=== PATIENT | male | born 1950 | race Caucasian/White ===

== ENCOUNTER → 2020-07-26 09:43 | Outpatient (BNVA) | payer OTHER, SELFPAY | PROVIDERS: Family Provider Internal Medicine Medical Oncology; PCP Speech-Language Pathologist; Referring Provider Family Medicine; Visit Provider Urology | DX: Z98.890 Other specified postprocedural states (principal); L90.0 Lichen sclerosus et atrophicus | CPT/HCPCS: 81003 ==

== ENCOUNTER → 2020-08-07 08:08 | Outpatient (BNVA) | payer OTHER, SELFPAY | PROVIDERS: PCP Speech-Language Pathologist; Visit Provider Urology | DX: L90.0 Lichen sclerosus et atrophicus (principal) | CPT/HCPCS: 87635 ==

== ENCOUNTER 2020-08-11 11:27 | Day surgery (SDC) | payer OTHER, SELFPAY ==
[2020-08-10 12:18] VITALS: BMI 31.9
[2020-08-11] VITALS (10 sets, daily range): BP systolic 135–175; BP diastolic 76–98; PULSE 62–75; RESP 14–20; TEMP 36.1–37.1; O2SAT 92–97
[2020-08-11] MEDS: sodium chloride 0.9% 1,000 ML 30 ML IV (12:21)
--- NOTE | 2020-08-11 12:49 | ANES.PREANE2 ---
Pre-Anesthetic Assessment Pre-Anesthetic Assessment: Height/Weight: Height 1.73 m Weight 95.254 kg Temp Pulse Resp BP Pulse Ox 98.3 F 75 18 175/98 94 08/11/20 11:54 08/11/20 11:54 08/11/20 11:54 08/11/20 11:54 08/11/20 11:54 Preop Diagnosis: post Circumcision adhesions Proposed Procedure: Operation Date: 08/11/20 13:00 Proposed Procedures p Circumcision and Release of Adhesions 35796 L90.0(Not Applicable) - Mario Mcelroy MD Was Beta Maritza taken within 24 hours: N/A Last intake: Intake Last Liquid Date 08/11/20 Last Liquid Time 08:00 Last Solid Date 08/10/20 Last Solid Time 20:00 Social: Social History: No alcohol and No tobacco Exam: Pre-Anes Outpt Exam: alert, oriented x 3, clear to auscultation bilaterally and regular rate & rhythm Airway: Submandibular: Other (Fullness) Cervical ROM: WNL MP: 3 Dentition: Full Additional comments: H/O difficult intubation Pulmonary: Pulmonary: Sleep apnea CV/HEM: CV/HEM: HTN : : None reported Hepatic: Hepatic: None reported GI: GI: None reported Metabolic: Metabolic: None reported Musc/skel: Musc/skel: None reported Neuropsych: Neuropsych: Anxiety and Depression Anesthetic Plan: ASA status: 3 Anesthesia: General Risk of > 500 ml blood loss (7ml/kg in children): No Meds/Allergies Current Medications: Current Medications Generic Name Dose Route Start Last Admin Trade Name Freq PRN Reason Stop Dose Admin Sodium Chloride 1,000 mls @ 30 ml s/hr 08/11/20 11:45 08/11/20 12:21 Sodium Chloride 0.9% IV 08/12/20 11:44 30 mls/hr .Q24H JARET Administration PFSH Anesthesia PFSH: Medical History Coronary artery disease Hypertension Lichen sclerosus Surgical History H/O circumcision H/O four vessel coronary artery bypass graft S/P sinus surgery Family History Father , at age 54 Cancer Hodgkins Lymphoma Mother , at age 77 Cancer lymphoma Social History Smoking and tobacco status: never smoked Alcohol intake: never Marital status: Current occupational status: retired History of recent travel: No Data Anesthesia Cardiac Studies: No Data to Display
--- NOTE | 2020-08-11 13:06 | P.HPUD_ITS ---
Surgery/Procedure H&P Update DATE OF PROCEDURE: August 11, 2020 DATE H&P PERFORMED: 07/26/20 H&P UPDATE INFORMATION: I have reviewed H&P completed within last 30 days, I have examined patient prior to procedure, No changes to prior documentation and H&P is in [facility] EMR on date indicated CHANGES TO PREVIOUS DOCUMENTATION: Reviewed again with the patient and his daughter Lizeth the difference between a normal circumcision and post circumci jimi adhesions related to lichen sclerosis. The plan will be to free up the remaining skin from the glans penis and consider a band incision with relaxing closure if indicated. Reviewed the importance of the post surgical local treatment with steroid cream. Both patient and daughter expressed understanding and agreed with decision to proceed. PREOP DIAGNOSIS: post Circumcision adhesions PLANNED PROCEDURE: Operation Date: 08/11/20 13:00 Proposed Procedures p Circumcision and Release of Adhesions 53745 L90.0(Not Applicable) - Mario Mcelroy MD
[2020-08-11] MEDS: neomycin-poly-bacitracin oint 28 gm 28 APPLIC (13:30)
--- NOTE | 2020-08-11 14:04 | SUR.PHASEI ---
PT TO PACU SLEEPY WITH ORAL AIRWAY IN PLACE, GOOD RESP EFFORT NOTED, VSS , DRESSING TO PENIS D/I NO BLEEDING NOTED DISTAL PENIS PINK IN COLOR.
--- NOTE | 2020-08-11 14:10 | SUR.PHASEI ---
PT AWAKE ALERT VERBALIZED NO PAIN OR NAUSEA, ORAL AIRWAY OUT PT NOW ON RA TRIAL.
--- NOTE | 2020-08-11 14:16 | PM.OP ---
Operative Report Date of procedure: August 11, 2020 Pre-op Diagnosis: post Circumcision adhesions, lichen sclerosis Post-op diagnosis: same Procedure Done: 1. Extensive adhesiolysis penile scarring secondary to lichen sclerosis. 2. Relaxing incision with skin flap development and closure Pathology: none sent Surgeon: Navi Anesthesia: General Estimated blood loss: Less than 5 cc Complications: None Findings: Severe adhesions of the lichen sclerosus involved penile skin to the glans penis. Tight restrictive band requiring vertical incision with flap development and horizontal closure as relaxing technique. Excellent functional and cosmetic result. Condition: stable Disposition: PACU Brief History: Mr. Alva is a 70-year-old white male with a history of circumcision remotely with long-term benefit. Recently he has developed recurrent phimosis with retraction of the phallus and evidence of lichen sclerosis on exam with essentially hidden penis. Was having a lot of trouble with discomfort as well as spraying with voiding. Recommended circumcision revision, adhesiolysis, possible relaxing incision. Procedure: After routine preoperative evaluation examination and obtaining of informed consent he was taken to the operating suite on 08/11/2020 where general anesthesia was administered without difficulty after appropriate timeout was performed, SCDs confirmed to be functioning, preoperative antibiotics administered, beta-mert protocol confirmed. Prepped and draped in the usual sterile fashion in supine position. Utilizing both blunt and sharp dissection the adhesions and lichen sclerosis involve skin was carefully dissected off the glans penis. This allowed the shaft skin which had become involved in the phimosis picture to be retracted. Further dissection helped free the adherent skin to the aquino and the tissue planes were developed to essentially normal appearance and exposure of the entire head of the penis. There was significant dense tissue at the frenulum which was also dissected to free up further length and normalization of anatomic appearance. Attention was then directed to the tight phimosis band from the lichen sclerosus. A vertical incision was made for approximately 2-1/2 cm and then flaps were developed laterally as well as proximally and distally to free up the skin. The vertical incision was closed horizontally which allowed significant relaxation and pliability of the skin. The skin was then closed with interrupted 3-0 chromic. Cosmetic result was good. Functional result was better. A lightly compressive dressing was then applied with Xeroform gauze covered with antibiotic ointment, 4 x 4 loosely wrapped around the penis and Coban tape for a lightly compressive dressing. He was awakened in the operating room and returned to the recovery room. PLANS: 1. Follow-up in approximately 6 weeks. 2. Can remove the dressing after few days if he can keep it on that long 3. Antibiotic ointment for 2 to 3 weeks to keep the skin pliable and then begin steroid application 4. Reviewed the instructions with his daughter.
[2020-08-11] MEDS: ondansetron 2 mg/ML SDV 2 mL 4 MG IVP (15:44)
--- NOTE | 2020-08-11 16:12 | ANE.PACU2 ---
Inpatient post-anesthesia follow up: Airway intact: Yes Vital signs: Temperature 97 F Pulse Rate 64 Respiratory Rate 18 Blood Pressure 159/87 Pulse Oximetry 92 Oxygen Delivery Me thod Room Air Oxygen Flow Rate 8 Fraction of Inspir ed Oxygen Hydration adequate: Yes Nausea and vomiting: No Pain level: 2 Mental status: Baseline
== END 2020-08-11 16:40 | disposition home or self-care (01) ==
PROVIDERS: PCP Speech-Language Pathologist; Visit Provider Urology
PROC: (CPT 54162; principal; 2020-08-11 13:00)
DX: N47.5 Adhesions of prepuce and glans penis (principal); Z98.890 Other specified postprocedural states; N48.0 Leukoplakia of penis; G47.30 Sleep apnea, unspecified; I10 Essential (primary) hypertension; I25.10 Atherosclerotic heart disease of native coronary artery without angina pectoris
CPT/HCPCS: 54162; 12345; J0690; J2405; J2704; J3010; J7030

== ENCOUNTER → 2020-09-25 09:26 | Outpatient (BNVA) | payer OTHER, SELFPAY | PROVIDERS: PCP Speech-Language Pathologist; Visit Provider Urology | DX: L90.0 Lichen sclerosus et atrophicus (principal); N47.5 Adhesions of prepuce and glans penis | CPT/HCPCS: 81003 ==

== ENCOUNTER → 2020-12-28 09:07 | Outpatient (BNVA) | payer OTHER, SELFPAY | PROVIDERS: PCP Family Medicine; Visit Provider Urology | DX: N39.9 Disorder of urinary system, unspecified (principal); N47.5 Adhesions of prepuce and glans penis; L90.0 Lichen sclerosus et atrophicus | CPT/HCPCS: 81003 ==

== ENCOUNTER → 2022-03-26 13:01 | Outpatient (BNVA) | payer OTHER, SELFPAY | PROVIDERS: PCP Family Medicine; Visit Provider Urology | DX: N47.5 Adhesions of prepuce and glans penis (principal); L90.0 Lichen sclerosus et atrophicus | CPT/HCPCS: 99213 ==

== ENCOUNTER 2022-05-10 07:36 | Outpatient (CLI) | payer OTHER, SELFPAY ==
--- NOTE | 2022-05-10 | CT_ITS ---
WS: [id number] CT NECK WITHOUT CONTRAST HISTORY: ENLARGED LYMPH NODE TECHNIQUE: Contiguous 5 mm axial images are performed through the neck without intravenous contrast. Sagittal and coronal reformats are also submitted. All CT scans at [facility] use at least on e of these dose optimization techniques: automated exposure control; mA and/or kV adjustment per brock ent size (includes targeted exams where dose is matched to clinical indication); or iterative reconst ruction. CONTRAST: CONTRAST: None DLP: 289.38 mGy.cm COMPARISON: None available. Very minimal asymmetry involving the LEFT palatine tonsil. LEFT palatine tonsil is larger than the RI GHT. No compromise of the airway. Glottis and subglottic region are negative. Torus tubarius and fossa of Rosenmuller and parapharyngeal fat are normal. Very small bilateral cervical chain lymph nodes. These lymph nodes are not enlarged. Normal fatty hil a remain. The largest lymph nodes are less than a centimeter. Thyroid gland and salivary glands are normally enhancing with no masses. Cerclage wires are noted in the posterior upper cervical spine from C2 to C3. Remote fracture at the base of the odontoid process. C4 anterolisthesis by 3 mm. Visualized portions of the skull base demonstrate no abnormalities. Orbits and globes are within norm al limits. No soft tissue masses. Near complete opacification LEFT maxillary sinus Lung apices are clear. CT/CT neck wo con [id number] IMPRESSION: 1. Very mild asymmetry of the palatine tonsils with the LEFT being larger than the RIGHT. Direct visualization may be necessary. 2. No cervical chain lymphadenopathy.
== END 2022-05-10 07:37 | disposition home or self-care (01) ==
PROVIDERS: PCP Family Medicine; Visit Provider Family Medicine
DX: Z01.89 Encounter for other specified special examinations (principal); R59.9 Enlarged lymph nodes, unspecified
CPT/HCPCS: 70490

== ENCOUNTER 2022-05-27 07:04 | Day surgery (SDC) | payer OTHER, SELFPAY ==
[2022-05-23 14:56] VITALS: BMI 32.3
[2022-05-27 07:23] VITALS: BP 160/99; PULSE 80; RESP 18; TEMP 36.3; O2SAT 94
[2022-05-27] MEDS: sodium chloride 0.9% 1,000 ML 30 ML IV (07:34)
--- NOTE | 2022-05-27 07:56 | W.PM.OPSFHP ---
Same Day Surgery H&P Indication for Procedure/HPI DATE OF PROCEDURE: May 27, 2022 CHIEF COMPLAINT/INDICATIONFOR SURGICAL PROCEDURE: Screening PREOP DIAGNOSIS: Screening PLANNED PROCEDURE: Operation Date: 05/27/22 08:30 Proposed Procedures p Colonoscopy 88255,Z12.11(Not Applicable) - Avelino Sawant MD Medications/Allergies* Home Medications Medication Instructions Recorded Confirmed Type aspirin 81 mg tablet,delayed 81 mg PO DAILY 07/26/20 05/23/22 History release atorvastatin 80 mg tablet 80 mg PO DAILY 07/26/20 05/23/22 History cetirizine 10 mg tablet (All Day 10 mg PO DAILY PRN allergies 07/26/20 05/23/22 History Allergy (cetirizine)) cholecalciferol (vitamin D3) 50 50 mcg PO DAILY 07/26/20 05/23/22 History mcg (2,000 unit) capsule fluoxetine 10 mg capsule 10 mg PO DAILY 07/26/20 05/23/22 History hydrochlorothiazide 25 mg tablet 25 mg PO DAILY 07/26/20 05/23/22 History losartan 100 mg tablet 100 mg PO DAILY 07/26/20 05/23/22 History potassium chloride 20 mEq oral 20 meq PO BID 07/26/20 05/23/22 History packet (Klor-Con) metoprolol succinate 25 mg 12.5 mg PO DAILY 03/26/22 05/23/22 History tablet,extended release 24 hr tamsulosin 0.4 mg capsule 0.4 mg PO DAILY 03/26/22 05/23/22 History Allergies/Adverse Reactions Allergy/AdvReac Type Severity Reaction Status Date / Time bupivacaine [From Marcaine] Allergy NA Verified 05/21/22 14:48 spironolactone Allergy NA Verified 05/21/22 14:48 Current Medications: Generic Name Dose Route Start Last Admin Trade Name Freq PRN Reason Stop Dose Admin Sodium Chloride 1,000 mls @ 30 mls/hr 05/27/22 07:15 05/27/22 07:34 Sodium Chloride 0.9% IV 30 mls/hr .Q24H JARET Administration Pertinent History/Comorbid Conditions* Medical History (Updated 05/21/22 @ 15:37 by Avelino Sawant MD) Coronary artery disease Hypertension Lichen sclerosus Penile adhesions Surgical History (Updated 07/26/20 @ 12:16 by Toya Fontanez APRN) H/O circumcision H/O four vessel coronary artery bypass graft S/P sinus surgery Family History (Updated 07/14/20 @ 14:41 by Delaney Daniels RN) Father, at age 54 Mother, at age 77 Cancer Father Hodgkins Lymphoma Mother lymphoma Social History Smoking and tobacco status: never smoked Alcohol intake: never Marital status: Current occupational status: retired History of recent travel: No Pertinent Exam Findings alert, oriented x 3, clear to auscultation bilaterally, regular rate & rhythm, operative site marked and procedure specific exam findings Recommendations Surgery/Procedure today Coding Level of Care Code Acute [employer] 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
--- NOTE | 2022-05-27 08:33 | P.ANESASSM_ITS ---
Pre-Anesthetic Assessment Height/Weight: Height 1.73 m Weight 96.615 kg Temp Pulse Resp BP Pulse Ox O2 Del Method 97.4 F L 80 18 160/99 94 05/27/22 07:23 05/27/22 07:23 05/27/22 07:23 05/27/22 07:23 05/27/22 07:23 05/27/22 07:23 Preop Diagnosis: Screening Operation Date: 05/27/22 08:30 Proposed Procedures p Colonoscopy 75908,Z12.11(Not Applicable) - Avelino Sawant MD Familial anesthetic complications: Hx difficult intubation d/t prior surgery. patient has bracelet indicating fiberoptic intubation - LMA 4 placed for surgery here at [facility] prior with no difficulties noted Was Beta Maritza taken within 24 hours: N/A Was Clonidine taken within 24 hours: N/A Last intake: Intake Last Liquid Date 05/26/22 Last Liquid Time 18:00 Last Solid Date 05/25/22 Last Solid Time 12:00 Social No alcohol and No tobacco Exam alert, oriented x 3, clear to auscultation bilaterally and regular rate & rhythm Airway Mallampati: Class III Dentition: full Pulmonary Sleep Apnea CV/HEM Coronary Artery Disease and Hypertension Metabolic Hyperlipidemia Anesthetic Plan ASA status: 3 Anesthesia: MAC Risk of > 500 ml blood loss (7ml/kg in children): No Medications/Allergies Home Medications Medication Instructions Recorded Confirmed Last Taken Type aspirin 81 mg tablet,delayed 81 mg PO DAILY 07/26/20 05/23/22 05/26/22 History release atorvastatin 80 mg tablet 80 mg PO DAILY 07/26/20 05/23/22 05/26/22 History cetirizine 10 mg tablet (All Day 10 mg PO DAILY PRN allergies 07/26/20 05/23/22 05/26/22 History Allergy (cetirizine)) cholecalciferol (vitamin D3) 50 50 mcg PO DAILY 07/26/20 05/23/22 05/26/22 History mcg (2,000 unit) capsule fluoxetine 10 mg capsule 10 mg PO DAILY 07/26/20 05/23/22 05/26/22 History hydrochlorothiazide 25 mg tablet 25 mg PO DAILY 07/26/20 05/23/22 05/26/22 History losartan 100 mg tablet 100 mg PO DAILY 07/26/20 05/23/22 05/26/22 History potassium chloride 20 mEq oral 20 meq PO BID 07/26/20 05/23/22 05/26/22 History packet (Klor-Con) hydrocodone 5 mg-acetaminophen 325 1 tab PO Q8H PRN pain #9 tabs 08/11/20 05/23/22 05/26/22 Rx mg tablet ([place]) triamcinolone acetonide 0.1 % 1 applic topical DAILY #30 grams 12/28/20 05/23/22 Unknown Rx topical cream metoprolol succinate 25 mg 12.5 mg PO DAILY 03/26/22 05/23/22 05/26/22 06:30 History tablet,extended release 24 hr tamsulosin 0.4 mg capsule 0.4 mg PO DAILY 03/26/22 05/23/22 05/26/22 History Allergies Allergy/AdvReac Type Severity Reaction Status Date / Time bupivacaine [From Marcaine] Allergy NA Verified 05/21/22 14:48 spironolactone Allergy NA Verified 05/21/22 14:48 Current Medications Generic Name Dose Route Start Last Admin Trade Name Freq PRN Reason Stop Dose Admin Sodium Chloride 1,000 mls @ 30 mls/hr 05/27/22 07:15 05/27/22 07:34 Sodium Chloride 0.9% IV 30 mls/hr .Q24H JARET Administration PFSH Anesthesia Medical History Coronary artery disease Hypertension Lichen sclerosus Penile adhesions Surgical History H/O circumcision H/O four vessel coronary artery bypass graft S/P sinus surgery Family History Father , at age 54 Cancer Hodgkins Lymphoma Mother , at age 77 Cancer lymphoma Social History Smoking and tobacco status: never smoked Alcohol intake: never Marital status: Current occupational status: retired History of recent travel: No Data Anesthesia Cardiac Studies: No Data to Display
[2022-05-27 09:06] VITALS: BP 123/79; PULSE 72; RESP 16; TEMP 36.2; O2SAT 98
[2022-05-27 09:14] VITALS: BP 120/76; PULSE 83; RESP 16; O2SAT 94
[2022-05-27 09:25] VITALS: BP 145/94; PULSE 69; RESP 16; O2SAT 96
--- NOTE | 2022-05-27 13:44 | ANE.PACU2 ---
Inpatient post-anesthesia follow up: Airway intact: Yes Vital signs: Temperature 97.2 F Pulse Rate 69 Respiratory Rate 16 Blood Pressure 145/94 Pulse Oximetry 96 Oxygen Delivery Me thod Room Air Oxygen Flow Rate 3 Fraction of Inspir ed Oxygen Hydration adequate: Yes Nausea and vomiting: No Pain level: 1 Mental status: Baseline
== END 2022-05-27 09:40 | disposition home or self-care (01) ==
PROVIDERS: PCP Family Medicine; Visit Provider Internal Medicine
PROC: 0DJD8ZZ Inspection of Lower Intestinal Tract, Via Natural or Artificial Opening Endoscopic (ICD-10-PCS; CPT 45378; principal; 2022-05-27 08:30)
DX: Z12.11 Encounter for screening for malignant neoplasm of colon (principal); Z79.82 Long term (current) use of aspirin; I25.10 Atherosclerotic heart disease of native coronary artery without angina pectoris; I10 Essential (primary) hypertension; K57.30 Diverticulosis of large intestine without perforation or abscess without bleeding; G47.30 Sleep apnea, unspecified; E78.5 Hyperlipidemia, unspecified
CPT/HCPCS: 45378; J2704; J7030

== ENCOUNTER 2022-09-03 09:30 | Outpatient (CLI) | payer OTHER, SELFPAY ==
--- NOTE | 2022-09-03 10:02 | FL_ITS ---
WS: [id number] FL barium swallow [id number] REASON FOR EXAM: DYSPHAGIA FLUOROSCOPY TIME: 2min 0.150264soh # OF SPOT FILMS: 126 Patient was examined in the upright and prone VALIENTE positions. Swallowing of barium was monitored fluoroscopically and multiple spot films obtained for documentatio n. A significant excess of spot films were obtained due to the patient's misunderstanding of swallowi ng instructions. The esophagus from the oropharynx to the fundus of the stomach was evaluated. FINDINGS: The cervical esophagus demonstrated normal motility and anatomy. The thoracic esophagus demonstrated significant intervals of loss of normal peristalsis with tertiary contractions. There were episodes where retained barium in the esophagus was propelled retrograde by abnormal peristalsis. The refluxed barium reached the level of the thoracic inlet. No significant narrowing at the gastroesophageal junction and no hiatal hernia was identified. There was no significant reflux at the gastroesophageal junction. FL/FL barium swallow [id number] IMPRESSION: No fixed obstruction of the esophagus. Abnormal motility with intermittent loss of primary peristalsis and tertiary co ntractions and retrograde reflux from the mid esophagus.
== END 2022-09-03 09:31 | disposition home or self-care (01) ==
LOC: RAD 09:33
PROVIDERS: PCP Family Medicine; Visit Provider Specialist
DX: R13.10 Dysphagia, unspecified (principal)
CPT/HCPCS: 74220

== ENCOUNTER 2022-09-10 10:24 | Outpatient (CLI) | payer OTHER, SELFPAY ==
--- NOTE | 2022-09-10 10:40 | FL_ITS ---
WS: [id number] MODIFIED BARIUM SWALLOW TECHNIQUE: Modified barium swallow with speech therapy using multiple consistencies. FLUOROSCOPY TIME: 3min 13.240013lmi # of spot films: 0 CLINICAL INFORMATION: Oral dysphagia COMPARISON: None. FINDINGS: Multiple consistencies utilized. No evidence of merly aspiration. Penetration with thin liquids. Reflux is visualized to the mid thoracic esophagus. Mild delayed transit of the barium tablet which c leared with additional barium. FL/FL barium swallow modifd 97102 IMPRESSION: 1. No merly aspiration. Penetration with thin liquids. 2. Reflux visualized to the mid thoracic esophagus. 3. Mild delayed transit of the barium tablet which cleared with additional bar ium.
== END 2022-09-10 10:25 | disposition home or self-care (01) ==
LOC: RAD 10:31
PROVIDERS: PCP Family Medicine; Visit Provider Specialist
DX: R13.10 Dysphagia, unspecified (principal); K21.9 Gastro-esophageal reflux disease without esophagitis
CPT/HCPCS: 74230; 92611

== ENCOUNTER → 2024-02-18 09:54 | Outpatient (BNVA) | payer OTHER, SELFPAY | PROVIDERS: PCP Family Medicine; Referring Provider Family Medicine; Visit Provider Psychiatry & Neurology Neurology | DX: Z86.73 Personal history of transient ischemic attack (TIA), and cerebral infarction without residual deficits (principal); I63.9 Cerebral infarction, unspecified; E55.9 Vitamin D deficiency, unspecified; M54.50 Low back pain, unspecified; R29.898 Other symptoms and signs involving the musculoskeletal system; R29.818 Other symptoms and signs involving the nervous system | CPT/HCPCS: 36415; 81241; 82306; 83090; 85210; 85613; 85730; 86146; 86147; 99203 ==

== ENCOUNTER 2024-03-24 07:05 | Outpatient (CLI) | payer OTHER, SELFPAY ==
--- NOTE | 2024-03-24 07:15 | MR_ITS ---
WS: [id number] MRI LUMBAR SPINE WITH AND WITHOUT CONTRAST HISTORY: I63.9 - Cerebral infarction, unspecified COMPARISON: None available. TECHNIQUE: Sagittal and axial multisequence imaging is submitted. Postcontrast sequences MultiHance 2 0 mL. Numerous sequences are compromised by motion artifact. Slight increase in the lower lumbar lordosis. Otherwise alignment is normal. Mild desiccation of the discs. No fractures or marrow edema. Conus terminates normally at L1. L1-L2: Significant compromise by motion. No stenosis. L2-L3: Significant motion artifact. Mild facet and ligamentum flavum hypertrophy. No significant sten osis. L3-L4: Significant motion artifact. Annular disc bulging with moderate ligamentum flavum and facet ar thritis. Annular disc bulging extending into the foramina. Moderate central, bilateral subarticular r ecess and foraminal stenosis. There is disc contacting the traversing L4 nerve roots and encroaching the L3 nerve roots. L4-L5: Diffuse annular disc bulging. Shallow LEFT foraminal disc protrusion. Moderate ligamentum flav um and facet arthritis. Mild subarticular recess encroachment and mild bilateral foraminal stenosis. L5-S1: Mild annular disc bulging with moderate ligamentum flavum and facet disease. Small amount of f luid in the LEFT facet joint. Disc and osteophyte contacts the exiting L5 nerve roots bilateral. Mode rate bilateral foraminal stenosis. Postcontrast imaging is negative for discitis or osteomyelitis. No enhancing mass is identified. MR/MR lumbar spine wo/w con [id number] IMPRESSION: 1. Study is compromised by motion artifact. 2. L3-4: Moderate central, bilateral subarticular recess and foraminal stenosi s due to disc and osteophyte disease. There is contact on both the L3 and L4 ne rve roots. 3. L4-5: Facet joint arthropathy. Mild subarticular recess and foraminal steno sis. 4. L5-S1: Moderate bilateral foraminal stenosis due to disc and osteophyte and facet disease. There is contact on the L5 nerve roots. 5. No discitis or osteomyelitis.
[2024-03-24] MEDS: gadobenate dimeglumine 20 mL vial IV (07:44)
== END 2024-03-24 07:06 | disposition home or self-care (01) ==
PROVIDERS: PCP Family Medicine; Visit Provider Psychiatry & Neurology Neurology
DX: I63.9 Cerebral infarction, unspecified (principal); M51.36 Other intervertebral disc degeneration, lumbar region; M47.896 Other spondylosis, lumbar region; M47.898 Other spondylosis, sacral and sacrococcygeal region; M25.78 Osteophyte, vertebrae; M99.63 Osseous and subluxation stenosis of intervertebral foramina of lumbar region; M99.64 Osseous and subluxation stenosis of intervertebral foramina of sacral region
CPT/HCPCS: 72158; A9577

== ENCOUNTER → 2024-03-30 14:13 | Outpatient (BNVA) | payer OTHER, SELFPAY | PROVIDERS: PCP Family Medicine; Visit Provider Orthopaedic Surgery | DX: M54.50 Low back pain, unspecified (principal); M48.062 Spinal stenosis, lumbar region with neurogenic claudication | CPT/HCPCS: 72110; 99204 ==

== ENCOUNTER → 2024-04-26 11:58 | Outpatient (BNVA) | payer OTHER, SELFPAY | PROVIDERS: PCP Family Medicine; Visit Provider Internal Medicine Cardiovascular Disease | DX: I49.8 Other specified cardiac arrhythmias (principal); R94.31 Abnormal electrocardiogram [ECG] [EKG]; R07.9 Chest pain, unspecified | CPT/HCPCS: 93005; 99204 ==

== ENCOUNTER 2024-05-19 10:28 | Outpatient (CLI) | payer OTHER, SELFPAY ==
[2024-05-19 10:46] VITALS: BMI 34.9
--- NOTE | 2024-05-19 10:46 | ECG_ITS ---
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
--- NOTE | 2024-05-19 10:47 | NMCV_ITS ---
NM ba perf SPECT r/s* [id number] Damion Alva Age: 73 Gender: M : 1950 Exam Date: 05/19/2024 11:16 Ordering Phys: Sybil Dunbar MD ([email or web address]) Technologist: JON Redman Exam Location: [facility] Indications: Fatigue, ASHD STRESS TEST Please see separate stress test report in [facility] for full findings IMAGE PROTOCOL Rest/Stress 1 Lexiscan Day Radiopharmaceutical Dose (mCi) Administration Site Administered by Rest: Tc-99m 8.5 IV JON Mccarthy Sestamibi Stress:Tc-99m 32.9 IV JON Redman Sestamibi Rest: 19-May-2024 60 Discovery 630 Stress: 19-May-2024 30 Discovery 630 0.4mg Lexiscan. Supine position only as patient was unable to lay prone. SPECT RESULTS Technical Quality: Good Raw Data Analysis: Normal Image Corrections: No attenuation or motion correction applied Summed Stress Score: 1 Summed Rest Score: 0 Summed Difference Score: 1 PERFUSION FINDINGS Myocardial perfusion imaging revealing a small area of slightly decreased tracer uptake in the apical lateral region with some reversibility FUNCTIONAL RESULTS (calculated via Gated SPECT) Stress Image LV EF (%): 79 Stress EDV (mL):78 TID: 0.85 Stress ESV (mL):16 FUNCTIONAL FINDINGS: Segmental wall motion analysis revealing no gross wall motion abnormalities IMPRESSIONS 1. Myocardial perfusion imaging revealing small area of slight reversibility in the apical lateral region, may suggest ischemia in the distribution of the left circumflex artery. However the finding is inconsistent and the reliability is questionable. 2. Normal LV ejection fraction 79%. 3. LV wall motion analysis revealing no gross wall motion abnormalities. 4. Normal LV volume No similar previous studies are available for comparison Dr Sybil Dunbar MD [facility] (Electronically Signed) Final Date: 19 May 2024 21:16 S
[2024-05-19] MEDS: regadenoson 0.4 Mg/5 ml Syringe IVP (12:25)
[2024-05-19 12:39] VITALS: BP 133/84; PULSE 88
== END 2024-05-19 10:29 | disposition home or self-care (01) ==
PROVIDERS: PCP Family Medicine; Visit Provider Internal Medicine Cardiovascular Disease
DX: I63.9 Cerebral infarction, unspecified (principal); E55.9 Vitamin D deficiency, unspecified
CPT/HCPCS: 36415; 78452; 93017; 96374; 99212; 99213; A9500; J2785

== ENCOUNTER → 2024-06-16 08:52 | Outpatient (BNVA) | payer OTHER, SELFPAY | PROVIDERS: PCP Family Medicine; Visit Provider Nurse Practitioner Family | DX: I25.10 Atherosclerotic heart disease of native coronary artery without angina pectoris (principal); R06.09 Other forms of dyspnea; Z86.73 Personal history of transient ischemic attack (TIA), and cerebral infarction without residual deficits; I10 Essential (primary) hypertension | CPT/HCPCS: 99214 ==

== ENCOUNTER 2024-06-29 07:02 | Outpatient (CLI) | payer OTHER, SELFPAY | END 2024-06-29 07:03 | disposition home or self-care (01) | LOC: RT 07:04 | PROVIDERS: PCP Family Medicine; Visit Provider Nurse Practitioner Family | DX: R06.09 Other forms of dyspnea (principal); R94.2 Abnormal results of pulmonary function studies | CPT/HCPCS: 94010; 94726; 94729 ==

== ENCOUNTER 2024-07-14 13:41 | Emergency (ER) | payer OTHER, SELFPAY ==
--- NOTE | 2024-07-14 13:51 | XR_ITS ---
WS: [id number] Portable AP upright chest, 07/14/2024 Clinical Data: fever Comparison: None. Findings: No nodules, masses or effusions are seen. The heart is normal. The pulmonary vascularity is not increased. No pneumonia or pneumothorax is seen. The aortic arch and descending thoracic aorta s how mild tortuosity. Midline sternotomy sutures are present. XR/XR chest 1V portable [id number] Impression: Atherosclerosis.
[2024-07-14 13:52] VITALS: BP 159/91; PULSE 71; RESP 16; TEMP 36.8; O2SAT 93; BMI 34.9
[2024-07-14 14:44] VITALS: BP 152/90; PULSE 71; RESP 16; O2SAT 92
[2024-07-14 14:59] LABS: Covid PCR NEGATIVE (Negative); Influenza A NEGATIVE (Negative); Influenza B NEGATIVE (Negative); Respiratory Syncytial Virus Ce NEGATIVE (Negative)
--- NOTE | 2024-07-14 15:01 | ECG_ITS ---
[facility] Test Date: 2024-07-14 Pat Name: Damion Alva Department: Room: Gender: Male Senior Oracle Developer: : 1950 Requested By: Simon Raymond Order Number: [id number] Young MD: Sybil Dunbar M.D. Measurements Intervals Bowers Rate: 59 P: 4 NC: 112 QRS: -7 QRSD: 138 T: 31 QT: 430 QTc: 428 Interpretive Statements SINUS BRADYCARDIA WITH SHORT NC INTERVAL RIGHT BUNDLE BRANCH BLOCK [120+ ms QRS DURATION, UPRIGHT V1, 40+ ms S IN I/aVL/V4/V5/V6] Compared to ECG 04/26/2024 12:02:17 Right bundle-branch block now present Sinus rhythm no longer present Electronically Signed On 07-14-2024 21:43:30 RETAIL AGENT by Sybil Dunbar M.D. [email or web address]
--- NOTE | 2024-07-14 15:25 | ED_ITS ---
HPI - URI/Sore Throat 2 General: Chief Complaint: Upper Respiratory Infection Stated Complaint: cough production, fatigue, fever 102 Time Seen by Provider: 07/14/24 14:31 Source: patient Mode of arrival: ambulatory Limitations: no limitations History of Present Illness: Patient is a 74-year-old male with past medical history of hyperlipidemia, hypertension, and coronary artery disease who is presenting to the emergency department with shortness of breath over the past couple of days. He was being seen at pain clinic in [place] for back pain, there was found to have an O2 saturation of 84% on room air. He does not require O2 at home, but was recently started on a CPAP machine. He states he does not feel like his condition has gotten any better after using CPAP, is still having quite a bit of fatigue and somnolence during the day. He is noting a productive cough as well as malaise over the past couple days. He does take hydrochlorothiazide. Reviewing his chart, he recently had a heart rate monitor from 05/04 to 06/02 that did not show any significant concerns. He also had a sestamibi stress test performed in April showing normal results and normal ejection fraction. With his prior cardiology visit, he was referred to pulmonology also plans for an ICD and scheduled cardiac stress test. Talking with the patient and family in the room, states he is not set to see cardiology until August. Patient is denying any chest pain, lightheadedness or dizziness, syncope, palpitations, frequent falls, or other symptoms at this time. He is breathing 92 to 94% on room air here in the emergency department, no acute distress noted. He denies to me history of asthma or COPD. MD elicited complaint: cough and other (Shortness of breath) Pertinent past history: other (Hypertension, hyperlipidemia, CAD, obstructive sleep apnea) Onset (ago): day(s) Consistency: constant Severity: mild Able to tolerate fluids by mouth: Yes Associated symptoms: Deny abdominal pain, chills, chest pain, diarrhea, ear or mastoid pain, fever(s), headache(s), nausea or vomiting Treatments prior to arrival: none Related Data Home Medications Medication Instructions Recorded Confirmed atorvastatin 80 mg tablet 80 mg PO DAILY 07/26/20 06/16/24 cetirizine 10 mg tablet (All Day 10 mg PO DAILY PRN allergies 07/26/20 06/16/24 Allergy (cetirizine)) cholecalciferol (vitamin D3) 50 50 mcg PO DAILY 07/26/20 06/16/24 mcg (2,000 unit) capsule hydrochlorothiazide 25 mg tablet 25 mg PO DAILY 07/26/20 06/16/24 losartan 100 mg tablet 100 mg PO DAILY 07/26/20 06/16/24 potassium chloride 20 mEq oral 20 meq PO BID 07/26/20 06/16/24 packet (Klor-Con) metoprolol succinate 25 mg 12.5 mg PO DAILY 03/26/22 06/16/24 tablet,extended release 24 hr tamsulosin 0.4 mg capsule 0.4 mg PO DAILY 03/26/22 06/16/24 aspirin 325 mg tablet 325 mg PO DAILY 02/18/24 06/16/24 citalopram 40 mg tablet 20 mg PO DAILY 04/26/24 06/16/24 omeprazole 20 mg capsule,delayed 20 mg PO DAILY 04/26/24 06/16/24 release prazosin 1 mg capsule 1 mg PO BID 04/26/24 06/16/24 Previous Rx's Medication Instructions Recorded triamcinolone acetonide 0.1 % 1 applic topical DAILY #30 grams 12/28/20 topical cream vitamin B complex-folic acid 0.4 1 tab PO DAILY #30 tabs 05/19/24 mg tablet (B Complex 1 (with folic acid)) azithromycin 500 mg tablet 500 mg PO DAILY 5 days #5 tabs 07/14/24 Allergies Allergy/AdvReac Type Severity Reaction Status Date / Time bupivacaine [From Marcaine] Allergy NA Verified 06/16/24 09:04 spironolactone Allergy NA Verified 06/16/24 09:04 Review of Systems 2 General: Reports: 10 or more systems reviewed and unremarkable except in HPI and below Const: Reports: fatigue, malaise and daytime sleepiness; Denies: fever(s) or chills Eyes: Denies: change in vision ENMT: Denies: throat pain, ear or mastoid pain or nasal discharge Card: Denies: chest pain, palpitations, swelling of feet/ankles or lightheadedness Resp: Reports: dyspnea and productive cough; Denies: wheezing GI: Denies: abdominal pain, nausea, vomiting, diarrhea or constipation : Denies: flank pain, difficulty urinating, dysuria or urinary frequency Musc: Denies: neck pain, back pain or joint pain Skin/Breast: Denies: rash Neuro: Denies: headache(s), numbness in extremities or weakness in extremities PFSH ED 2 PFSH: Medical History Gilbert syndrome Adjustment disorder, unspecified Hypertrophy of breast Benign prostatic hyperplasia without lower urinary tract symptoms Hypokalemia Hyperlipidemia, unspecified Otitis media, unspecified, unspecified ear Prediabetes Hyperchloremia H/O cholecystitis cholecystectomy Allergic rhinitis, unspecified Atherosclerotic heart disease of [place] coronary artery without angina pectoris Penile adhesions Hypertension Coronary artery disease Lichen sclerosus Surgical History H/O coronary artery bypass surgery H/O circumcision H/O four vessel coronary artery bypass graft S/P sinus surgery Family History Father , at age 54 Cancer Hodgkins Lymphoma Mother , at age 77 Cancer lymphoma Social History Smoking and tobacco/nicotine status: never used tobacco/nicotine Alcohol intake: never Marital status: Current occupational status: retired Physical Exam 2 Const: COMMON NORMALS: no acute distress and no limitations GENERAL APPEARANCE: cooperative, comfortable and well developed NUTRITIONAL APPEARANCE: obese ORIENTATION/CONSCIOUSNESS: Yes awake OTHER: Nontoxic-appearing, no acute respiratory distress HENMT: COMMON NORMALS: normocephalic, atraumatic, hearing grossly normal bilaterally and moist oral mucous membranes HEAD & SCALP: normocephalic and atraumatic Eye: COMMON NORMALS: Equal, round and reactive pupils present, EOMs intact bilaterally and conjunctivae normal CONJUNCTIVA: Yes conjunctivae normal P UPIL: Yes Equal, round and reactive pupils present Neck/C-Spine: COMMON NORMALS: full ROM, supple and no JVD Resp: COMMON NORMALS: normal respiratory effort, No retractions, No use of accessory muscles and clear to auscultation bilaterally AUSCULTATION: clear to auscultation bilaterally Cardio: COMMON NORMALS: no JVD, regular rate, regular rhythm, No clicks present (Cardio), No murmurs present (Cardio) and No rub (Cardio) RATE: r egular rate RHYTHM: regular rhythm GI: COMMON NORMALS: Normal to inspection, nondistended, normoactive bowel sounds present, Soft to palpation and non-tender INSPECTION: Yes central obesity AUSCULTATION: Yes normoactive bowel sounds PALPATION: Yes Soft to palpation RECTAL EXAM: Yes deferred Extremity: COMMON NORMALS: normal to inspection, full ROM and capillary refill normal NARRATIVE EXTREMITY EXAM: Pitting edema bilateral lower extremities, right worse than left Psych: COMMON NORMALS: mental status grossly normal and Normal thought process present THOUGHT PROCESS: Normal thought process present Skin: COMMON NORMALS: no rashes or lesions noted GENERAL SKIN EXAM: no rashes or lesions noted Course 2 Vital Signs: Vital signs: Vital Signs Temperature 98.3 F 07/14/24 13:52 Pulse Rate 63 07/14/24 16:08 Respiratory Rate 16 07/14/24 16:08 Blood Pressure 161/79 07/14/24 16:08 Pulse Oximetry 93 07/14/24 16:08 Oxygen Delivery Me thod Room Air 07/14/24 16:08 MDM - URI/Sore Throat Medical Decision Making Patient was sent with reported hypoxia from pain clinic in [place]. Here through ED stay has been 92-95% SpO2 on room air. Of note he recently was given a CPAP for obstructive sleep apnea but was still having somnolence during the day. Has undergone a lot of cardiology testing as an outpatient recently has been normal, and he has been referred to pulmonology as well as plan for cardiology follow-up in August to discuss implantable loop recorder. I also see plans for cardiac cath coming up. With the increase in shortness of breath as well as malaise and productive cough, he was worked up here in the ER found to have unremarkable chest x-ray. EKG reviewed with physician not showing any acute STEMI or other concerning findings. Lab work all normal, including a negative BNP. He did have some peripheral edema on physical exam, I do see that he is on 25 of hydrochlorothiazide once a day. He likely needs to discuss this dose with primary care, I relayed this to patient and family in the room. With his acute onset symptoms and production of cough, will simply start him on a Z- [place] and was given steroid shot here to help open up his airway. He has been cooperative and comfortable throughout ED stay with no complaints. I have very low suspicion for any cardiopulmonary emergency at this time, however did thoroughly discussed with them reasons to return such that if he starts to have chest pain, if his breathing gets significantly worse or if he is found to be hypoxic again to return immediately to the ER. This is understood and patient discharged home at this time. Lab Data 07/14/24 15:38 07/14/24 15:38 Radiology Impressions Chest X-Ray 07/14/24 13:51 Impression: Atherosclerosis. Laboratory Results WBC 6.84 10^3/uL (3.29-11.43) 07/14/24 15:38 RBC 4.39 10^6/uL (3.85-5.65) 07/14/24 15:38 Hgb 13.70 g/dL (11.27-16.99) 07/14/24 15:38 Hct 42.7 % (37-53) 07/14/24 15:38 MCV 97.3 fl (82-101) 07/14/24 15:38 MCH 31.2 pg (27-33) 07/14/24 15:38 MCHC 32.1 g/dL (30-55) 07/14/24 15:38 RDW 13.9 % (12.1-15.1) 07/14/24 15:38 Plt Count 214 10^3/cmm (157-399) 07/14/24 15:38 MPV 10.5 fL (7.4-10.4) H 07/14/24 15:38 Neut % (Auto) 51.7 % 07/14/24 15:38 Lymph % (Auto) 33.6 % 07/14/24 15:38 [place] % (Auto) 6.7 % 07/14/24 15:38 Eos % (Auto) 7.2 % 07/14/24 15:38 Baso % (Auto) 0.7 % 07/14/24 15:38 Neut # (Auto) 3.53 10^3/uL (1.8-7.7) 07/14/24 15:38 Lymph # (Auto) 2.3 10^3/uL (0.8-4.8) 07/14/24 15:38 [place] # (Auto) 0.5 10^3/uL (0.2-0.9) 07/14/24 15:38 Eos # (Auto) 0.5 10^3/uL (0.0-0.8) 07/14/24 15:38 Baso # (Auto) 0.1 10^3/uL (0.0-0.1) 07/14/24 15:38 Nucleated RBC % (auto) 0 % 07/14/24 15:38 Nucleated RBCs # 0.0 /100WBC 07/14/24 15:38 Sodium 142 mmol/L (136-145) 07/14/24 15:38 Potassium 4.1 mmol/L (3.5-5.1) 07/14/24 15:38 Chloride 106 mmol/L (98-107) 07/14/24 15:38 Carbon Dioxide 28 mmol/L (22-29) 07/14/24 15:38 Anion Gap 12.1 (5-19) 07/14/24 15:38 BUN 16 mg/dL (8-23) 07/14/24 15:38 Creatinine 1.3 mg/dL (0.7-1.2) H 07/14/24 15:38 GFR Calculation Not Reportable 07/14/24 15:38 Glucose 162 mg/dL (65-115) H 07/14/24 15:38 Calculated Osmolality 299 mOsm/kg (285-295) H 07/14/24 15:38 Calcium 9.5 mg/dL (8.5-10.5) 07/14/24 15:38 Total Bilirubin 1.3 mg/dL (0.15-1.2) H 07/14/24 15:38 AST 17 U/L (0-40) 07/14/24 15:38 ALT 19 U/L (0-41) 07/14/24 15:38 Alkaline Phosphatase 59 U/L (40-130) 07/14/24 15:38 NT-Pro-B Natriuret Pep < 36 pg/mL (0-450) 07/14/24 15:38 Total Protein 6.2 g/dL (6.6-8.7) L 07/14/24 15:38 Albumin 3.7 g/dL (3.5-5.2) 07/14/24 15:38 Globulin 2.5 g/dL (1.3-4.6) 07/14/24 15:38 Urine Color Yellow (Yellow) 07/14/24 15:54 Urine Appearance Clear (CLEAR) 07/14/24 15:54 Urine pH 6.5 (5-7) 07/14/24 15:54 Ur Specific [place] 1.020 (1.005-1.030) 07/14/24 15:54 Urine Protein Negative (Negative) 07/14/24 15:54 Urine Glucose (UA) Negative (Normal) 07/14/24 15:54 Urine Ketones Negative (Negative) 07/14/24 15:54 Urine Blood Negative (Negative) 07/14/24 15:54 Urine Nitrate Negative (Negative) 07/14/24 15:54 Urine Bilirubin Negative (Negative) 07/14/24 15:54 Urine Urobilinogen 1.0 mg/dL (Negative) 07/14/24 15:54 Ur Leukocyte Esterase Negative (Negative) 07/14/24 15:54 Urine RBC 0-2 /hpf (0-2) 07/14/24 15:54 Urine WBC 0-5 /hpf (0-5) 07/14/24 15:54 Ur Squamous Epith Cells 0-5 /hpf (0-5) 07/14/24 15:54 Amorphous Sediment Not Reportable 07/14/24 15:54 Urine Bacteria None seen /hpf (NONE) 07/14/24 15:54 Hyaline Casts 0.40 /lpf 07/14/24 15:54 Coronavirus (PCR) Negative (Negative) 07/14/24 13:50 Influenza A (PCR) Negative (Negative) 07/14/24 13:50 Influenza Type B (PCR) Negative (Negative) 07/14/24 13:50 RSV (PCR) Negative (Negative) 07/14/24 13:50 All radiology interpretation(s) finalized by discharge Discharge Plan Discharge Patient Disposition: Home Clinical Impression: Acute bronchitis Qualifiers: Bronchitis organism: unspecified organism Qualified Code(s): J20.9 - Acute bronchitis, unspecified Condition: Stable Prescriptions: New azithromycin 500 mg tablet 500 mg PO DAILY 5 Days Qty: 5 0RF No Action potassium chloride [Klor-Con] 20 mEq packet 20 meq PO BID hydrochlorothiazide 25 mg tablet 25 mg PO DAILY losartan 100 mg tablet 100 mg PO DAILY atorvastatin 80 mg tablet 80 mg PO DAILY cetirizine [All Day Allergy (cetirizine)] 10 mg tablet 10 mg PO DAILY PRN (Reason: allergies) cholecalciferol (vitamin D3) 50 mcg (2,000 unit) capsule 50 mcg PO DAILY triamcinolone acetonide 0.1 % cream 1 applic topical DAILY Qty: 30 6RF Rx Instructions: Apply every other day to specific portion of the penis reviewed and consider the above information for this visit tamsulosin 0.4 mg capsule 0.4 mg PO DAILY metoprolol succinate 25 mg tablet extended release 24 hr 12.5 mg PO DAILY vitamin B complex-folic acid [B Complex 1 (with folic acid)] 0.4 mg tablet 1 tab PO DAILY Qty: 30 6RF aspirin 325 mg tablet 325 mg PO DAILY citalopram 40 mg tablet 20 mg PO DAILY prazosin 1 mg capsule 1 mg PO BID omeprazole 20 mg capsule,delayed release(DR/EC) 20 mg PO DAILY Discharge Orders: Discharge ED (Routine); Ordered 07/14/24 Ordered By: Simon Rodriguez Referrals: Aysha Levin MD [Primary Care Provider] - Patient Instructions: Acute Bronchitis (ED) Activity Restrictions/Additional Instructions: Take azithromycin as prescribed. See attached patient instructions for further education. Please follow-up with your primary care provider to discuss your worsening peripheral swelling, you may require increased dosage of your hydrochlorothiazide. Please also continue follow-up with cardiology. If you begin to have chest pain, if your breathing worsens, or you have any other concerning symptoms please return to the emergency department. Coding Level of Care Code ED Manager Technical for Min [place]cer
[2024-07-14 15:57] LABS: Basophils # 0.1 10^3/uL (0.0-0.1); Basophils % 0.7 %; Eosinophils # 0.5 10^3/uL (0.0-0.8); Eosinophils % 7.2 %; Hematocrit 42.7 % (37-53); Lymphocytes # 2.3 10^3/uL (0.8-4.8); Lymphocytes % 33.6 %; Mean Corpuscular HGB Conc 32.1 g/dL (30-55); Mean Corpuscular Hemoglobin 31.2 pg (27-33); Mean Corpuscular Volume 97.3 fl (82-101); Mean Platelet Volume 10.5 fL (7.4-10.4); Monocytes # 0.5 10^3/uL (0.2-0.9); Monocytes % 6.7 %; Neutrophils # 3.53 10^3/uL (1.8-7.7); Neutrophils % 51.7 %; Nucleated Red Blood Cells % 0 %; Platelet Count 214 10^3/cmm (157-399); Red Blood Count 4.39 10^6/uL (3.85-5.65); Red Cell Distribution Width 13.9 % (12.1-15.1); White Blood Count 6.84 10^3/uL (3.29-11.43)
[2024-07-14 16:08] VITALS: BP 161/79; PULSE 63; RESP 16; O2SAT 93
[2024-07-14 16:25] LABS: Bilirubin Urine Negative (Negative); Blood Urine Negative (Negative); Glucose Urine UA Negative (Normal); Ketones Urine Negative (Negative); Leukocyte Esterase Urine Negative (Negative); Nitrate Urine Negative (Negative); Protein Urine Negative (Negative); Urine Appearance Clear (CLEAR); Urine Color Yellow (Yellow); pH Urine 6.5 (5-7)
[2024-07-14 16:26] LABS: Alanine Aminotransferase 19 U/L (0-41); Albumin Level 3.7 g/dL (3.5-5.2); Alkaline Phosphatase 59 U/L (40-130); Anion Gap 12.1 (5-19); Aspartate Amino Transferase 17 U/L (0-40); Blood Urea Nitrogen 16 mg/dL (8-23); Calcium 9.5 mg/dL (8.5-10.5); Carbon Dioxide 28 mmol/L (22-29); Chloride 106 mmol/L (98-107); Creatinine Clr Calc Pharmacy 57.4794; Globulin 2.5 g/dL (1.3-4.6); Glucose 162 mg/dL (65-115); NT Pro B Type Natriuretic Pept < 36 pg/mL (0-450); Osmolality Calculated 299 mOsm/kg (285-295); Potassium 4.1 mmol/L (3.5-5.1); Sodium 142 mmol/L (136-145); Total Bilirubin 1.3 mg/dL (0.15-1.2); Total Protein 6.2 g/dL (6.6-8.7)
[2024-07-14 16:31] LABS: Add Urine Microscopic? YES; Bacteria Urine None Seen /hpf; RBC Urine 0-2 /hpf (0-2); Squamous Epithelial Cell Urine 0-5 /hpf (0-5); WBC Urine 0-5 /hpf (0-5)
[2024-07-14] MEDS: dexamethasone 10 mg/mL INJ IM (16:54)
[2024-07-14 17:16] VITALS: BP 137/83; PULSE 60; RESP 16; O2SAT 91
== END 2024-07-14 17:16 | disposition home or self-care (01) ==
PROVIDERS: Emergency Medicine; Emergency Provider Physician Assistant; PCP Family Medicine
DX: J20.9 Acute bronchitis, unspecified (principal); Z11.52 Encounter for screening for COVID-19; Z79.82 Long term (current) use of aspirin; E78.5 Hyperlipidemia, unspecified; I25.10 Atherosclerotic heart disease of native coronary artery without angina pectoris; I10 Essential (primary) hypertension
CPT/HCPCS: 0241U; 36415; 71045; 80053; 81001; 83880; 85025; 93005; 96372; 99285; J1100

== ENCOUNTER 2024-08-09 07:22 | Outpatient (CLI) | payer OTHER, SELFPAY ==
[2024-08-09] MEDS: cephALEXin 500 mg Capsule 2000 MG PO (07:55)
[2024-08-09 08:01] LABS: Basophils # 0.1 10^3/uL (0.0-0.1); Basophils % 0.5 %; Eosinophils # 0.1 10^3/uL (0.0-0.8); Eosinophils % 1.3 %; Hematocrit 44.1 % (37-53); Lymphocytes % 35.9 %; Mean Corpuscular HGB Conc 32.9 g/dL (30-55); Mean Corpuscular Hemoglobin 31.3 pg (27-33); Mean Corpuscular Volume 95.2 fl (82-101); Mean Platelet Volume 10.6 fL (7.4-10.4); Monocytes # 0.9 10^3/uL (0.2-0.9); Monocytes % 8.1 %; Neutrophils # 5.95 10^3/uL (1.8-7.7); Neutrophils % 53.7 %; Nucleated Red Blood Cells % 0 %; Platelet Count 266 10^3/cmm (157-399); Red Blood Count 4.63 10^6/uL (3.85-5.65); Red Cell Distribution Width 13.3 % (12.1-15.1); White Blood Count 11.06 10^3/uL (3.29-11.43)
[2024-08-09 08:10] VITALS: BP 174/99; PULSE 65; RESP 16; TEMP 37.2; O2SAT 92
--- NOTE | 2024-08-09 08:42 | PM.HP ---
Providers/Chief Complaint Admitting Physician: Dr SUSAN Dunbar Primary Care Provider: Aysha Levin MD Chief Complaint: I63.9 History of Present Illness Damion Alva is a 74 year old male with a history of atherosclerotic heart diseas, high blood pressure, dyslipidemia, had features of a cryptogenic stroke. He has a history of palpitations off and on. An event monitor was attempted. Because of some technical difficulties, the study was inconclusive.. For further evaluation of his condition, an implantable school lunch monitor was recommended This patient has no chest pain or chest tightness. No unusual shortness of breath. No fever, chills or cough. He had an event monitor. Family because of the technical issues, the study was inconclusive. He has a history of palpitations off and on. So far no atrial fibrillation was identified Review of Systems Narrative: CONSTITUTIONAL: No fever or chills. EYES: No blurring of vision or other visual disturbances lately. ENT: No hoarseness of voice, auditory disturbances or sore throat. CARDIOVASCULAR: As mentioned above. RESPIRATORY: No significant cough. GASTROINTESTINAL: No hematemesis or melena. GENITOURINARY: No dysuria or hematuria. INTEGUMENTARY: No skin rashes or history of skin cancer. NEURO: Recent CVA as mentioned above PSYCHIATRIC: No history of psychosis or major depression. HEMATOLOGIC: No bleeding disorders or significant anemia. ENDOCRINE: No history of polyuria or polydipsia. MUSCULOSKELETAL: No recent joint pain or swelling. ALLERGY/IMMUNOLOGY: As mentioned above. Medications/Allergies Home Medications Medication Instructions Recorded Confirmed Last Taken Type atorvastatin 80 mg tablet 80 mg PO DAILY 07/26/20 08/06/24 08/08/24 History cetirizine 10 mg tablet (All Day 10 mg PO DAILY PRN allergies 07/26/20 08/06/24 08/08/24 History Allergy (cetirizine)) cholecalciferol (vitamin D3) 50 50 mcg PO DAILY 07/26/20 08/06/24 08/08/24 History mcg (2,000 unit) capsule hydrochlorothiazide 25 mg tablet 25 mg PO DAILY 07/26/20 08/06/24 08/08/24 History losartan 100 mg tablet 100 mg PO DAILY 07/26/20 08/06/24 08/08/24 History potassium chloride 20 mEq oral 20 meq PO BID 07/26/20 08/06/24 08/08/24 History packet (Klor-Con) metoprolol succinate 25 mg 12.5 mg PO DAILY 03/26/22 08/06/24 08/08/24 History tablet,extended release 24 hr tamsulosin 0.4 mg capsule 0.4 mg PO DAILY 03/26/22 08/06/24 08/08/24 History aspirin 325 mg tablet 325 mg PO DAILY 02/18/24 08/06/24 08/08/24 History citalopram 40 mg tablet 20 mg PO DAILY 04/26/24 08/06/24 08/08/24 History omeprazole 20 mg capsule,delayed 20 mg PO DAILY 04/26/24 08/06/24 08/08/24 History release prazosin 1 mg capsule 1 mg PO BID 04/26/24 08/06/24 08/08/24 History vitamin B complex-folic acid 0.4 1 tab PO DAILY #30 tabs 05/19/24 08/06/24 08/08/24 Rx mg tablet (B Complex 1 (with folic acid)) prednisone 10 mg tablet 30 mg (3 x 10 mg) PO DAILY 5 days 08/04/24 08/06/24 08/08/24 Rx #15 tabs Allergies Allergy/AdvReac Type Severity Reaction Status Date / Time bupivacaine [From Marcaine] Allergy NA Verified 08/04/24 18:24 spironolactone Allergy NA Verified 08/04/24 18:24 PFSH Acute PFSH: Medical History Gilbert syndrome Adjustment disorder, unspecified Hypertrophy of breast Benign prostatic hyperplasia without lower urinary tract symptoms Hypokalemia Hyperlipidemia, unspecified Otitis media, unspecified, unspecified ear Prediabetes Hyperchloremia H/O cholecystitis cholecystectomy Allergic rhinitis, unspecified Atherosclerotic heart disease of [place] coronary artery without angina pectoris Penile adhesions Hypertension Coronary artery disease Lichen sclerosus Surgical History H/O coronary artery bypass surgery H/O circumcision H/O four vessel coronary artery bypass graft S/P sinus surgery Family History Father , at age 54 Cancer Hodgkins Lymphoma Mother , at age 77 Cancer lymphoma Social History Smoking and tobacco/nicotine status: never used tobacco/nicotine Alcohol intake: never Marital status: Current occupational status: retired Vitals/I&O/Wt Last Vital Signs Temp 98.9 F 08/09/24 08:10 Pulse 65 08/09/24 08:10 Resp 16 08/09/24 08:10 BP 174/99 08/09/24 08:10 Pulse Ox 92 08/09/24 08:10 O2 Del Method Room Air 08/09/24 08:10 Physical Exam Narrative: GENERAL: The patient is alert and oriented times three. Not in any acute distress. HEENT: No significant pallor, icterus or lymphadenopathy.Oral cavity: There are no mucous membrane lesions. NECK: Trachea appears to be central. No masses noted. No JVD or thyromegaly appreciated. RESPIRATORY: Chest is symmetrical. No intercostals muscle retraction or any accessory muscle activation. There is no chest wall tenderness. Breath sounds are heard bilaterally. No rales or rhonchi heard. No evidence of any consolidation. BREASTS: Deferred. HEART: The heart sounds are normal. No S3 or S4. No significant murmurs. No pericardial rub ABDOMEN: No vessel pulsations or distention. No tenderness. No organomegaly appreciated. Bowel sounds are normally heard. : Deferred. RECTAL: Deferred. LYMPHATIC: No lymphadenopathy noted in the neck or groin. EXTREMITIES: No edema or cyanosis. No clubbing. Peripheral pulses are palpated in fairly good volume and amplitude MUSCULOSKELETAL: No acute joint deformities or swelling SKIN: There are no significant scars or skin rash noted. NEUROPSYCHIATRIC: The patient is alert and oriented x3. Appears to be in a good mood. No tremors or rigidity noted. Data 08/09/24 07:47 Other Labs: Laboratory Last Values WBC 11.06 10^3/uL (3.29-11.43) 08/09/24 07:47 RBC 4.63 10^6/uL (3.85-5.65) 08/09/24 07:47 Hgb 14.50 g/dL (11.27-16.99) 08/09/24 07:47 Hct 44.1 % (37-53) 08/09/24 07:47 MCV 95.2 fl (82-101) 08/09/24 07:47 MCH 31.3 pg (27-33) 08/09/24 07:47 MCHC 32.9 g/dL (30-55) 08/09/24 07:47 RDW 13.3 % (12.1-15.1) 08/09/24 07:47 Plt Count 266 10^3/cmm (157-399) 08/09/24 07:47 MPV 10.6 fL (7.4-10.4) H 08/09/24 07:47 Neut % (Auto) 53.7 % 08/09/24 07:47 Lymph % (Auto) 35.9 % 08/09/24 07:47 [place] % (Auto) 8.1 % 08/09/24 07:47 Eos % (Auto) 1.3 % 08/09/24 07:47 Baso % (Auto) 0.5 % 08/09/24 07:47 Neut # (Auto) 5.95 10^3/uL (1.8-7.7) 08/09/24 07:47 Lymph # (Auto) 4.0 10^3/uL (0.8-4.8) 08/09/24 07:47 [place] # (Auto) 0.9 10^3/uL (0.2-0.9) 08/09/24 07:47 Eos # (Auto) 0.1 10^3/uL (0.0-0.8) 08/09/24 07:47 Baso # (Auto) 0.1 10^3/uL (0.0-0.1) 08/09/24 07:47 Nucleated RBC % (auto) 0 % 08/09/24 07:47 Nucleated RBCs # 0.0 /100WBC 08/09/24 07:47 A&P Assessment and plan (1) Cryptogenic stroke: To evaluate for possible atrial fibrillation causing this, an implantable school lunch monitor was recommended. (2) Atherosclerotic heart disease of [place] coronary artery without angina pectoris: Currently seems to be stable with no significant symptoms. Qualifiers: [place] vs. transplanted heart: [place] heart Qualified Code(s): I25.10 - Atherosclerotic heart disease of [place] coronary artery without angina pectoris (3) Benign essential hypertension with target blood pressure below 140/90: The blood pressure is elevated. Apparently the patient did not take the blood pressure medication this morning (4) Dyslipidemia: Knee on the current management (5) Palpitations: Intermittent. No documented atrial fibrillation so far Plan I discussed with the patient and his family about the need for a centimeter, risk and benefits. The risk of infection, vascular injury, and other contributory complication were discussed in detail. Patient understood this well and consented to proceed. Attestations Medical Necessity Statement*: Possible discharge home after the procedure. Coding Level of Care Code 18217 Diagnoses Cryptogenic stroke I63.9 Atherosclerosis of [place] coronary artery of [place] heart without angina pectoris I25.10 [place] vs. transplanted heart: [place] heart Benign essential hypertension with target blood pressure below 140/90 I10 Dyslipidemia E78.5 Palpitations R00.2
--- NOTE | 2024-08-09 08:44 | W.PM.OPSUD ---
Surgery/Procedure H&P Update DATE OF PROCEDURE: August 09, 2024 DATE H&P PERFORMED: 08/09/24 H&P UPDATE INFORMATION: I have reviewed H&P completed within last 30 days, I have examined patient prior to procedure and No changes to prior documentation PREOP DIAGNOSIS: Cryptogenic stroke PRIMARY INDICATION FOR PROCEDURE: Patient with a history of a history of cryptogenic stroke.. Event monitoring study inconclusive. For further evaluation, an ICM was recommended PLANNED PROCEDURE: Operation Date: 08/09/24 08:30 Proposed Procedures p Loop Recorder Insertion(Not Applicable) - Sybil Dunbar MD
[2024-08-09] MEDS: lidocaine-epi 1% PF 1:200,000 30 mL SDV INJECTION (08:52)
--- NOTE | 2024-08-09 09:32 | PM.OP ---
Operative Report Date of procedure: August 09, 2024 Surgeon: Sybil Dunbar MD Procedure: Date of Procedure: 08/09/2024 Name of the procedure: IMPLANTABLE AUTOMATIC DRILLER AND REAMER INSERTION LOCATION: Cardiac Catheterization Laboratory REFERRING PROVIDER: Dr. Torres PREOPERATIVE DIAGNOSIS: Cryptogenic stroke POSTOPERATIVE DIAGNOSIS: Same. ESTIMATED BLOOD LOSS: None COMPLICATIONS: None. BRIEF HISTORY: Patient presented with features of cryptogenic stroke. He had an event monitor which didn't reveal any significant arrhythmias to explain the symptoms. There were are also some technical difficulties with the monitoring. For further evaluation, an implantable russian language professor was recommended PROCEDURE: The procedure was explained to the patient in detail with the risks and benefits. The risk of bleeding, hematoma, vascular injury, infection and other concomitant complications were explained in detail. The patient understood this well and consented to proceed. The patient was brought to the [facility]. Patient was given 2 g of Keflex, p.o. preoperatively. The left side of the chest was cleaned and draped in a sterile fashion. 1% Xylocaine was used as local anesthetic agent. An incision was made in the left fourth intercostal space. Making use of the application device, the implantable russian language professor was inserted, subcutaneously. 5 minutes of manual pressure was applied, at the puncture site. The patient tolerated the procedure very well and there were no complications. No bleeding or hematoma. Steri-Strips were applied over the insertion site followed by a sterile dressing. Patient was sent back to the medical floor in stable condition IMPLANTED DEVICE Reveal LINQ Model number: [id number] II Serial number: [id number] Make: EnerTrac Parameters: Standard settings were applied( (tachycardia rate of 130 beats per minute , bradycardia rate of 40 beats per minute and a pause of 3 seconds ; symptom recording -4 episodes of 7.5 minutes. AT/ Atrial fibrillation detection was turned on- recording threshold of ->6 minutes. Sensitivity was kept at 0.035 mV) The R wave sensing was0.27 mV
[2024-08-09 09:58] VITALS: BP 162/78; PULSE 67; RESP 18; TEMP 36.9; O2SAT 96
--- NOTE | 2024-08-09 10:54 | SUR.PHASEII ---
The patients daughter, Lizeth, was called with an appointment with Gloria Norton NP Jul at 1530 at [facility]. She verbalized her understanding.
== END 2024-08-09 07:23 | disposition home or self-care (01) ==
PROVIDERS: PCP Family Medicine; Visit Provider Internal Medicine Cardiovascular Disease
PROC: (CPT 33285; principal; 2024-08-09 08:30)
DX: I63.9 Cerebral infarction, unspecified (principal); I25.10 Atherosclerotic heart disease of native coronary artery without angina pectoris; I10 Essential (primary) hypertension; R00.2 Palpitations; Z79.82 Long term (current) use of aspirin; N40.0 Benign prostatic hyperplasia without lower urinary tract symptoms; E78.00 Pure hypercholesterolemia, unspecified; Z95.1 Presence of aortocoronary bypass graft
CPT/HCPCS: 33285; 36415; 85025; C1764; C1769

== ENCOUNTER → 2024-08-19 13:04 | Outpatient (BNVA) | payer OTHER, SELFPAY | PROVIDERS: PCP Family Medicine; Visit Provider Nurse Practitioner Family | DX: I10 Essential (primary) hypertension (principal); Z86.73 Personal history of transient ischemic attack (TIA), and cerebral infarction without residual deficits; Z95.818 Presence of other cardiac implants and grafts | CPT/HCPCS: 99024; 99203 ==

== ENCOUNTER → 2024-08-25 08:30 | Outpatient (BNVA) | payer OTHER, SELFPAY | PROVIDERS: PCP Family Medicine; Visit Provider Internal Medicine Cardiovascular Disease | DX: Z45.09 Encounter for adjustment and management of other cardiac device (principal) | CPT/HCPCS: 93298 ==

== ENCOUNTER → 2024-09-16 09:45 | Outpatient (BNVA) | payer OTHER, SELFPAY | PROVIDERS: PCP Family Medicine; Visit Provider Psychiatry & Neurology Neurology | DX: I63.9 Cerebral infarction, unspecified (principal); E55.9 Vitamin D deficiency, unspecified; I69.319 Unspecified symptoms and signs involving cognitive functions following cerebral infarction; I10 Essential (primary) hypertension; E87.8 Other disorders of electrolyte and fluid balance, not elsewhere classified; I25.10 Atherosclerotic heart disease of native coronary artery without angina pectoris | CPT/HCPCS: 36415; 82607; 82746; 83090; 83735; 83921; 84207; 99212 ==

== ENCOUNTER → 2024-09-17 10:02 | Outpatient (BNVA) | payer OTHER, SELFPAY | PROVIDERS: PCP Family Medicine; Visit Provider Internal Medicine Cardiovascular Disease | DX: Z45.09 Encounter for adjustment and management of other cardiac device (principal) | CPT/HCPCS: 93291 ==

== ENCOUNTER → 2024-10-20 11:16 | Outpatient (BNVA) | payer OTHER, SELFPAY | PROVIDERS: PCP Family Medicine; Visit Provider Nurse Practitioner Family | DX: I63.9 Cerebral infarction, unspecified (principal); I10 Essential (primary) hypertension | CPT/HCPCS: 99213 ==

== ENCOUNTER → 2024-10-27 08:25 | Outpatient (BNVA) | payer OTHER, SELFPAY | PROVIDERS: PCP Family Medicine; Referring Provider Nurse Practitioner; Visit Provider Nurse Practitioner Family | DX: L85.3 Xerosis cutis (principal); B35.6 Tinea cruris; L81.4 Other melanin hyperpigmentation; L57.8 Other skin changes due to chronic exposure to nonionizing radiation; X32.XXXA Exposure to sunlight, initial encounter; L57.0 Actinic keratosis | CPT/HCPCS: 17000; 99204 ==

== ENCOUNTER → 2024-11-17 09:07 | Outpatient (BNVA) | payer OTHER, SELFPAY | PROVIDERS: PCP Family Medicine; Visit Provider Internal Medicine Cardiovascular Disease | DX: Z45.09 Encounter for adjustment and management of other cardiac device (principal) | CPT/HCPCS: 93298 ==

== ENCOUNTER 2024-11-29 17:14 | Emergency (ER) | payer OTHER, MEDICARE, SELFPAY ==
[2024-11-29 17:27] VITALS: BP 165/78; PULSE 52; RESP 16; TEMP 36.7; O2SAT 94
--- NOTE | 2024-11-29 18:27 | USR_ITS ---
PROCEDURE INFORMATION: Exam: US Duplex Right Lower Extremity Veins, Limited Exam date and time: 11/29/2024 7:33 PM Age: 74 years old Clinical indication: Pain; Leg, lower; Right; Additional info: Right leg pain, elevated d dimer TECHNIQUE: Imaging protocol: Real-time duplex ultrasound of the right extremity with 2-D andujar scale, color Doppler flow and spectral waveform analysis including responses to compression and other maneuvers (when performed) with image documentation. Limited exam was focused on the right lower extremity veins. COMPARISON: No relevant prior studies available. FINDINGS: Right deep veins: Unremarkable. The common femoral, femoral, proximal profunda femoral, popliteal, posterior tibial and peroneal veins are patent without thrombus. Normal Doppler waveforms. Normal compressibility and/or augmentation response. Superficial veins: Greater saphenous vein at the saphenofemoral junction is patent without thrombus. Soft tissues: Unremarkable. US/[place] [id number] IMPRESSION: No sonographic evidence of deep vein thrombosis.
[2024-11-29 19:43] LABS: Basophils # 0.1 10^3/uL (0.0-0.1); Basophils % 0.7 %; Eosinophils # 0.7 10^3/uL (0.0-0.8); Eosinophils % 6.9 %; Hematocrit 46.7 % (37-53); Lymphocytes # 3.1 10^3/uL (0.8-4.8); Mean Corpuscular Hemoglobin 30.8 pg (27-33); Mean Corpuscular Volume 99.2 fl (82-101); Mean Platelet Volume 10.5 fL (7.4-10.4); Monocytes # 0.9 10^3/uL (0.2-0.9); Monocytes % 9.1 %; Neutrophils # 4.73 10^3/uL (1.8-7.7); Nucleated Red Blood Cells % 0 %; Platelet Count 199 10^3/cmm (157-399); Red Blood Count 4.71 10^6/uL (3.85-5.65); Red Cell Distribution Width 13.7 % (12.1-15.1); White Blood Count 9.46 10^3/uL (3.29-11.43)
[2024-11-29 20:00] LABS: Alanine Aminotransferase 17 U/L (0-41); Albumin Level 3.9 g/dL (3.5-5.2); Alkaline Phosphatase 77 U/L (40-130); Anion Gap 18.4 (5-19); Aspartate Amino Transferase 15 U/L (0-40); Blood Urea Nitrogen 17 mg/dL (8-23); Calcium 10.4 mg/dL (8.5-10.5); Carbon Dioxide 26 mmol/L (22-29); Chloride 105 mmol/L (98-107); Creatinine Clr Calc Pharmacy 62.9519; Globulin 2.9 g/dL (1.3-4.6); Glucose 93 mg/dL (65-115); Osmolality Calculated 301 mOsm/kg (285-295); Potassium 4.4 mmol/L (3.5-5.1); Sodium 145 mmol/L (136-145); Total Bilirubin 0.8 mg/dL (0.15-1.2); Total Protein 6.8 g/dL (6.6-8.7)
[2024-11-29 20:38] VITALS: BP 156/82; PULSE 57; RESP 18; O2SAT 92
--- NOTE | 2024-11-29 20:49 | W.ED.EXTPRO ---
HPI - Extremity Problem General: Chief complaint: Extremity Problem,Nontraumatic Stated complaint: [facility] sent, abnormal labs Time Seen by Provider: 11/29/24 20:37 History of Present Illness: Patient is a 74-year-old male who presents to the ED for evaluation of right leg pain and swelling. Symptoms began approximately one week ago, initially with mild pain upon waking. Over the weekend, symptoms progressed with increased pain and visible changes to the leg. Patient reports pain and soreness particularly around the ankle area, with some discomfort extending to the bottom of his foot. He denies any known trauma or injury. Earlier today, he was evaluated at the [facility] where a D-dimer was found to be elevated, prompting ED referral for further evaluation. Patient denies fever. He maintains ability to move his ankle without significant pain. Related Data Home Medications ?Medication ?Instructions ?Recorded ?Confirmed atorvastatin 80 mg tablet 80 mg PO DAILY 07/26/20 10/20/24 cetirizine 10 mg tablet (All Day 10 mg PO DAILY PRN allergies 07/26/20 10/20/24 Allergy (cetirizine)) cholecalciferol (vitamin D3) 50 50 mcg PO DAILY 07/26/20 10/20/24 mcg (2,000 unit) capsule hydrochlorothiazide 25 mg tablet 25 mg PO DAILY 07/26/20 10/20/24 losartan 100 mg tablet 100 mg PO DAILY 07/26/20 10/20/24 potassium chloride 20 mEq oral 20 meq PO BID 07/26/20 10/20/24 packet (Klor-Con) tamsulosin 0.4 mg capsule 0.4 mg PO DAILY 03/26/22 10/20/24 aspirin 325 mg tablet 325 mg PO DAILY 02/18/24 10/20/24 citalopram 40 mg tablet 20 mg PO DAILY 04/26/24 10/20/24 omeprazole 20 mg capsule,delayed 20 mg PO DAILY 04/26/24 10/20/24 release prazosin 1 mg capsule 1 mg PO BID 04/26/24 10/20/24 Previous Rx's ?Medication ?Instructions ?Recorded vitamin B complex-folic acid 0.4 1 tab PO DAILY #30 tabs 05/19/24 mg tablet (B Complex 1 (with folic acid)) metoprolol succinate 25 mg 12.5 mg (1/2 x 25 mg) PO ONCE #30 11/19/24 tablet,extended release 24 hr tabs cephalexin 500 mg capsule 500 mg PO Q6H 7 days #28 caps 11/29/24 Allergies Allergy/AdvReac Type Severity Reaction Status Date / Time bupivacaine (From Marcaine) Allergy NA Verified 11/29/24 17:31 spironolactone Allergy NA Verified 11/29/24 17:31 PFSH ED PFSH: Medical History Gilbert syndrome Adjustment disorder, unspecified Hypertrophy of breast Benign prostatic hyperplasia without lower urinary tract symptoms Hypokalemia Hyperlipidemia, unspecified Otitis media, unspecified, unspecified ear Prediabetes Hyperchloremia H/O cholecystitis cholecystectomy Allergic rhinitis, unspecified Atherosclerotic heart disease of [place] coronary artery without angina pectoris Penile adhesions Hypertension Coronary artery disease Lichen sclerosus Surgical History H/O coronary artery bypass surgery H/O circumcision H/O four vessel coronary artery bypass graft S/P sinus surgery Family History Father , at age 54 Cancer Hodgkins Lymphoma Mother , at age 77 Cancer lymphoma Social History Smoking and tobacco/nicotine status: never used tobacco/nicotine Alcohol intake: never Marital status: Current occupational status: retired Physical Exam Const: COMMON NORMALS: no acute distress, average body habitus, alert and well nourished GENERAL APPEARANCE: cooperative ORIENTATION/CONSCIOUSNESS: Yes awake HENMT: COMMON NORMALS: normocephalic and atraumatic HEAD & SCALP: normocephalic and atraumatic Eye: COMMON NORMALS: conjunctivae normal CONJUNCTIVA: Yes conjunctivae normal Neck/C-Spine: GENERAL: Yes normal visual inspection Resp: COMMON NORMALS: normal respiratory effort, No retractions and No use of accessory muscles Cardio: COMMON NORMALS: regular rhythm and Peripheral pulses 2+ throughout RHYTHM: regular rhythm PERIPHERAL PULSES: Peripheral pulses 2+ throughout GI: COMMON NORMALS: Soft to palpation and non-tender PALPATION: Yes Soft to palpation Extremity: COMMON NORMALS: full ROM and no pedal edema Neuro: COMMON NORMALS: no focal motor deficits SENSORIUM/ORIENTATION: Yes alert Skin: COMMON NORMALS: no rashes or lesions noted GENERAL SKIN EXAM: no rashes or lesions noted Course Vital Signs: Vital signs: Vital Signs Temperature 98.1 F 11/29/24 17:27 Pulse Rate 57 L 11/29/24 20:38 Respiratory Rate 18 11/29/24 20:38 Blood Pressure 156/82 11/29/24 20:38 Pulse Oximetry 92 11/29/24 20:38 Oxygen Delivery Me thod Room Air 11/29/24 17:27 MDM - Extremity (Nontraumatic) Medical Decision Making Review of Systems: Constitutional: Denies fever Musculoskeletal: Reports right leg pain and swelling Cardiovascular: No chest pain Respiratory: Reports history of shortness of breath All other systems reviewed and negative Past Surgical History: Coronary artery bypass graft surgery Physical Exam: General: Non-toxic appearing male in no acute distress Right Lower Extremity: - Faint line of erythema around medial aspect of right foot and ankle - Erythema extends proximally along medial aspect of calf - No significant swelling of lower leg or calf - No induration - 2+ posterior tibial and dorsalis pedis pulses Musculoskeletal: - Full range of motion of ankle - Moves all extremities well Lab Results: CBC: Unremarkable CMP: Unremarkable D-dimer: Elevated (performed at [facility], specific value not available) Imaging and Other Relevant Results: Right lower extremity ultrasound: Negative for deep vein thrombosis Medical Decision Making: Summary Statement: 74-year-old male with cardiovascular risk factors presenting with right lower extremity pain and mild erythema, found to have elevated D-dimer at outside facility, now ruled out for DVT. Problem List: 1. Right lower extremity erythema and pain, 2. Elevated D-dimer Differential Diagnosis: 1. Cellulitis 2. Deep vein thrombosis (ruled out) 3. Gout 4. Superficial thrombophlebitis ED Course: Patient underwent lower extremity ultrasound which was negative for DVT. Labs including CBC and CMP were unremarkable. Physical exam revealed mild erythema without significant swelling or induration, consistent with early cellulitis. Assessment and Plan: 1. Right Lower Extremity Erythema - Mild cellulitis: - Prescribe Keflex (cephalexin) for 7 days - Elevate leg to help with swelling - Return precautions discussed for worsening redness, spreading up leg, fever, or increased pain - Follow up with primary care physician 2. DVT Evaluation: - Negative lower extremity ultrasound - No anticoagulation indicated at this time Lab Data I reviewed the patient's lab results. 11/29/24 19:23 11/29/24 19:23 Radiology Impressions Venous Duplex 11/29/24 18:27 IMPRESSION: No sonographic evidence of deep vein thrombosis. Laboratory Results WBC 9.46 10^3/uL (3.29-11.43) 11/29/24 19:23 RBC 4.71 10^6/uL (3.85-5.65) 11/29/24 19:23 Hgb 14.50 g/dL (11.27-16.99) 11/29/24 19:23 Hct 46.7 % (37-53) 11/29/24 19:23 MCV 99.2 fl (82-101) 11/29/24 19:23 MCH 30.8 pg (27-33) 11/29/24 19: MCHC 31.0 g/dL (30-55) 11/29/24 19:23 RDW 13.7 % (12.1-15.1) 11/29/24 19:23 Plt Count 199 10^3/cmm (157-399) 11/29/24 19:23 MPV 10.5 fL (7.4-10.4) H 11/29/24 19:23 Neut % (Auto) 50.0 % 11/29/24 19:23 Lymph % (Auto) 33.0 % 11/29/24 19:23 [place] % (Auto) 9.1 % 11/29/24 19:23 Eos % (Auto) 6.9 % 11/29/24 19:23 Baso % (Auto) 0.7 % 11/29/24 19:23 Neut # (Auto) 4.73 10^3/uL (1.8-7.7) 11/29/24 19:23 Lymph # (Auto) 3.1 10^3/uL (0.8-4.8) 11/29/24 19:23 [place] # (Auto) 0.9 10^3/uL (0.2-0.9) 11/29/24 19:23 Eos # (Auto) 0.7 10^3/uL (0.0-0.8) 11/29/24 19:23 Baso # (Auto) 0.1 10^3/uL (0.0-0.1) 11/29/24 19:23 Nucleated RBC % (auto) 0 % 11/29/24 19:23 Nucleated RBCs # 0.0 /100WBC 11/29/24 19:23 Sodium 145 mmol/L (136-145) 11/29/24 19:23 Potassium 4.4 mmol/L (3.5-5.1) 11/29/24 19:23 Chloride 105 mmol/L (98-107) 11/29/24 19:23 Carbon Dioxide 26 mmol/L (22-29) 11/29/24 19:23 Anion Gap 18.4 (5-19) 11/29/24 19:23 BUN 17 mg/dL (8-23) 11/29/24 19:23 Creatinine 1.2 mg/dL (0.7-1.2) 11/29/24 19:23 GFR Calculation Not Reportable 11/29/24 19:23 Glucose 93 mg/dL (65-115) 11/29/24 19:23 Calculated Osmolality 301 mOsm/kg (285-295) H 11/29/24 19:23 Calcium 10.4 mg/dL (8.5-10.5) 11/29/24 19:23 Total Bilirubin 0.8 mg/dL (0.15-1.2) 11/29/24 19:23 AST 15 U/L (0-40) 11/29/24 19:23 ALT 17 U/L (0-41) 11/29/24 19:23 Alkaline Phosphatase 77 U/L (40-130) 11/29/24 19:23 Total Protein 6.8 g/dL (6.6-8.7) 11/29/24 19:23 Albumin 3.9 g/dL (3.5-5.2) 11/29/24 19:23 Globulin 2.9 g/dL (1.3-4.6) 11/29/24 19:23 All radiology interpretation(s) finalized by discharge Discharge Plan Discharge Patient Disposition: Home Clinical Impression: Cellulitis Qualifiers: Site of cellulitis: extremity Site of cellulitis of extremity: lower extremity Laterality: right Qualified Code(s): L03.115 - Cellulitis of right lower limb Condition: Stable Prescriptions: New cephalexin 500 mg capsule 500 mg PO Q6H 7 Days Qty: 28 0RF No Action potassium chloride [Klor-Con] 20 mEq packet 20 meq PO BID hydrochlorothiazide 25 mg tablet 25 mg PO DAILY losartan 100 mg tablet 100 mg PO DAILY atorvastatin 80 mg tablet 80 mg PO DAILY cetirizine [All Day Allergy (cetirizine)] 10 mg tablet 10 mg PO DAILY PRN (Reason: allergies) cholecalciferol (vitamin D3) 50 mcg (2,000 unit) capsule 50 mcg PO DAILY tamsulosin 0.4 mg capsule 0.4 mg PO DAILY vitamin B complex-folic acid [B Complex 1 (with folic acid)] 0.4 mg tablet 1 tab PO DAILY Qty: 30 6RF aspirin 325 mg tablet 325 mg PO DAILY citalopram 40 mg tablet 20 mg PO DAILY prazosin 1 mg capsule 1 mg PO BID omeprazole 20 mg capsule,delayed release(DR/EC) 20 mg PO DAILY metoprolol succinate 25 mg tablet extended release 24 hr 12.5 mg PO ONCE Qty: 30 0RF Discharge Orders: Discharge ED (Routine); Ordered 11/29/24 Ordered By: Marvel Valladares Referrals: Aysha Levin MD [Primary Care Provider, Family Practice] Discharge Activity: Resume usual activity Patient Instructions: Cellulitis (ED), Opioid Safety, Pain Management Activity Restrictions/Additional Instructions: Take all medication as directed. Follow-up with your primary care provider for recheck next week. Return to the ER for any new or worsening symptoms or any other concerns. Print Language: Samoan Coding Level of Care Code ED Fingerprinter for Min Mercer
[2024-11-29 20:51] LABS: Bilirubin Urine Negative (Negative); Blood Urine Negative (Negative); Glucose Urine UA Negative (Normal); Ketones Urine Negative (Negative); Leukocyte Esterase Urine Negative (Negative); Nitrate Urine Negative (Negative); Protein Urine Negative (Negative); Specific Gravity, Urine 1.021 (1.005-1.030); Urine Appearance Clear (CLEAR); Urine Color Yellow (Yellow); Urobilinogen Urine 0.2 mg/dL (Negative)
[2024-11-29 20:56] LABS: Add Urine Microscopic? YES; Bacteria Urine None Seen /hpf; Hyaline Casts Urine 0.81 /lpf; RBC Urine 0-2 /hpf (0-2); Squamous Epithelial Cell Urine 0-5 /hpf (0-5); WBC Urine 0-5 /hpf (0-5)
[2024-11-29 21:11] VITALS: BP 164/81; PULSE 53; O2SAT 91
== END 2024-11-29 21:14 | disposition home or self-care (01) ==
PROVIDERS: Student in an Organized Health Care Education/Training Program; Emergency Provider Student in an Organized Health Care Education/Training Program; PCP Family Medicine
DX: L03.115 Cellulitis of right lower limb (principal); E78.5 Hyperlipidemia, unspecified; I10 Essential (primary) hypertension; I25.10 Atherosclerotic heart disease of native coronary artery without angina pectoris
CPT/HCPCS: 36415; 80053; 81001; 85025; 93971; 99284

== ENCOUNTER 2024-12-14 14:56 | Outpatient (CLI) | payer OTHER, SELFPAY ==
--- NOTE | 2024-12-14 15:00 | USCV_ITS ---
Damion Alva Age: 74 Gender: M : 1950 Exam Date: 12/14/2024 15:22 Ordering Phys: Barbie Norton NP Technologist: Exam Location: [facility] [place]_ Indication: cva BP: 149 / 79 HR: 81 Rhythm: Sinus Technical Quality: Adequate MEASUREMENTS (Male / Female) Normal Values 2D ECHO LVOT Diameter 2.3 cm LV Ejection Fraction MOD 4C 64.4 % LV Ejection Fraction MOD 2C 60.2 % LV Ejection Fraction 2C AL 62.1 % LA Diameter 4.1 cm RA Systolic Volume 4C AL 82.8 ml RA Systolic Volume 4C MOD 78.4 ml Aorta at Sinotubular Diameter 2.8 cm M-MODE LA Ao Ratio MM 1.5 AV Cusp Separation MM 2.7 cm DOPPLER AV Peak Velocity 146.0 cm/s LVOT Peak Velocity 95.0 cm/s AV Area Cont Eq vti 2.9 cm squared AV Area Cont Eq pk 2.7 cm squared MV Peak Velocity 117.0 cm/s MV Area PHT 3.9 cm squared Mitral E to A Ratio 1.2 TR Peak Velocity 130.0 cm/s TR Peak Gradient 6.8 mmHg TV Peak E Velocity 87.0 cm/s PV Peak Velocity 111.0 cm/s FINDINGS Left Ventricle (Echo contrast - Optison was used to delineate the endocardium and to estimate the LV ejection fraction). Possibly normal LV size and ejection fraction of 62%. No gross wall motion normalities were noted. Right Ventricle Possibly of normal size and ejection fraction Right Atrium Right atrium not well visualized. Left Atrium Left atrium not well visualized. Mitral Valve Trace to mild mitral valve regurgitation. Aortic Valve Aortic valve not well visualized. Tricuspid Valve Tricuspid valve not well visualized. Pulmonic Valve Pulmonic valve not well visualized. Pericardium No pericardial effusion. Aorta Aorta not well visualized. IVC Inferior vena cava not visualized. CONCLUSIONS Technically very limited study. (Echo contrast - Optison was used to delineate the endocardium and to estimate the LV ejection fraction). Possibly normal LV size and ejection fraction of 62%. No gross wall motion normalities were noted. Possibly normal RV size ejection fraction. The atria are not visualized well. The valve morphologies also could not be delineated well Trace to mild mitral valve regurgitation. Dr Sybil Dunbar MD FACC (Electronically Signed) Final Date: 15 Dec 2024 09:16 S
[2024-12-14] MEDS: perflutren protein-a microsphr 0.22 mg/mL SDV 3 mL IV (16:05)
== END 2024-12-14 14:57 | disposition home or self-care (01) ==
LOC: RAD 14:59
PROVIDERS: PCP Family Medicine; Visit Provider Nurse Practitioner Family
DX: I63.9 Cerebral infarction, unspecified (principal); R93.1 Abnormal findings on diagnostic imaging of heart and coronary circulation; I34.0 Nonrheumatic mitral (valve) insufficiency
CPT/HCPCS: C8929

== ENCOUNTER → 2024-12-15 11:04 | Outpatient (BNVA) | payer OTHER, SELFPAY | PROVIDERS: PCP Family Medicine; Visit Provider Nurse Practitioner Family | DX: M25.471 Effusion, right ankle (principal); Z79.01 Long term (current) use of anticoagulants; Z79.82 Long term (current) use of aspirin; Z95.1 Presence of aortocoronary bypass graft | CPT/HCPCS: 99213 ==

== ENCOUNTER → 2025-01-12 09:40 | Outpatient (BNVA) | payer OTHER, SELFPAY | PROVIDERS: PCP Family Medicine; Visit Provider Internal Medicine Cardiovascular Disease | DX: Z45.09 Encounter for adjustment and management of other cardiac device (principal) | CPT/HCPCS: 93298 ==

== ENCOUNTER → 2025-02-16 09:45 | Outpatient (BNVA) | payer OTHER, SELFPAY | PROVIDERS: PCP Family Medicine; Visit Provider Internal Medicine Cardiovascular Disease | DX: Z45.09 Encounter for adjustment and management of other cardiac device (principal) | CPT/HCPCS: 93298 ==

== ENCOUNTER → 2025-03-30 10:51 | Outpatient (BNVA) | payer OTHER, SELFPAY | PROVIDERS: PCP Family Medicine; Visit Provider Internal Medicine Cardiovascular Disease | DX: I25.10 Atherosclerotic heart disease of native coronary artery without angina pectoris (principal); I10 Essential (primary) hypertension; E78.5 Hyperlipidemia, unspecified; Z79.01 Long term (current) use of anticoagulants; Z79.82 Long term (current) use of aspirin; Z95.1 Presence of aortocoronary bypass graft; Z86.73 Personal history of transient ischemic attack (TIA), and cerebral infarction without residual deficits; Z87.891 Personal history of nicotine dependence | CPT/HCPCS: 99214 ==

== ENCOUNTER → 2025-04-13 10:27 | Outpatient (BNVA) | payer OTHER, SELFPAY | PROVIDERS: PCP Family Medicine; Visit Provider Internal Medicine Cardiovascular Disease | DX: Z45.09 Encounter for adjustment and management of other cardiac device (principal) | CPT/HCPCS: 93298 ==

== ENCOUNTER 2025-04-15 15:20 | Outpatient (CLI) | payer OTHER, SELFPAY ==
--- NOTE | 2025-04-15 15:45 | USCV_ITS ---
Nida Damion Age: 74 Gender: M : 1950 Exam Date: 04/15/2025 15:44 Ordering Phys: Sybil Dunbar MD ([email or web address]) Technologist: Exam Location: [facility] [place] Indication: old cva Risk Factors: Previous Vascular Surgery: Right Brachial BP: / Left Brachial BP: / Right Left Velocity (cm/s) Spectral Plaque Velocity (cm/s) Spectral Plaque Syst/Diast Broadening Syst/Diast Broadening 127.00/13.50 Prox CCA 125.60/ 21.30 115.00/14.20 Mid CCA 90.30 / 12.70 57.30/ 9.40 Distal CCA 69.50 / 12.70 33.00/ 8.90 Prox ICA 35.50 / 7.90 67.20/ 21.10 Mid ICA 65.20 / 11.30 101.30/30.10 Distal ICA 78.30 / 15.80 72.10 ECA 97.50 0.60 ICA/CCA 0.50 Antegrade Vertebral Antegrade 69.70/ 15.50 cm/s 69.00/ 10.50 cm/s Tri Subclavian Tri 103.3 82.80 0 CONCLUSIONS Right ICA stenosis <50%. Mild atheromatous plaque right carotid bulb/ICA. Left ICA stenosis <50%. Mild atheromatous plaque left carotid bulb/ICA. Intimal thickening in the common carotid arteries and internal carotid arteries bilaterally. Normal antegrade Doppler flow noted in the right vertebral artery. Normal antegrade Doppler flow noted in the left vertebral artery. Bin Londono MD (Electronically Signed) Final Date: 15 April 2025 16:21 S
== END 2025-04-15 15:21 | disposition home or self-care (01) ==
LOC: RAD 15:22
PROVIDERS: PCP Family Medicine; Visit Provider Internal Medicine Cardiovascular Disease
DX: R42 Dizziness and giddiness (principal); I25.10 Atherosclerotic heart disease of native coronary artery without angina pectoris; I69.319 Unspecified symptoms and signs involving cognitive functions following cerebral infarction; I65.23 Occlusion and stenosis of bilateral carotid arteries
CPT/HCPCS: 93880

== ENCOUNTER → 2025-05-11 07:24 | Outpatient (BNVA) | payer OTHER, SELFPAY | PROVIDERS: PCP Family Medicine; Visit Provider Podiatrist Foot & Ankle Surgery | DX: I73.9 Peripheral vascular disease, unspecified (principal); L60.3 Nail dystrophy; Z79.01 Long term (current) use of anticoagulants | CPT/HCPCS: 11721; 99204 ==

== ENCOUNTER → 2025-06-15 11:34 | Outpatient (BNVA) | payer OTHER, SELFPAY | PROVIDERS: PCP Family Medicine; Visit Provider Internal Medicine Cardiovascular Disease | DX: Z45.09 Encounter for adjustment and management of other cardiac device (principal) | CPT/HCPCS: 93298 ==

== ENCOUNTER → 2025-07-13 09:04 | Outpatient (BNVA) | payer OTHER, SELFPAY | PROVIDERS: PCP Family Medicine; Visit Provider Specialist | DX: M17.11 Unilateral primary osteoarthritis, right knee (principal) | CPT/HCPCS: 20610; 73560; 73565; 99204; J7327 ==